=== PATIENT | female | born 1970 | race Caucasian/White ===

== ENCOUNTER 2018-01-18 02:55 | Emergency (ER) | payer MEDICAID ==
--- NOTE | 2018-01-18 03:40 | ED Physician Chart ---
ED Chief Complaint/HPI - Patient Information Date Seen:: 01/18/18 Time Seen:: 03:35 Chief Complaint:: allergic rxn scalp skin History of Present Illness:: 47 yr old female who was using hair dye kit on back of hair on and developed rash on post scalp and back of hair with oozing and severe rash maculopapular pt very irritated and nervous Allergies:: Allergies Allergy/AdvReac Type Severity Reaction Status Date / Time No Known Allergies Allergy Verified 01/18/18 03:06 Vitals:: Vital Signs - 8 hr 01/18/18 03:00 Temp 98.1 F HR 110 RR 20 BP 146/95 O2 Sat % 100 ED Review of Systems - Review of Systems General/Constitutional: No fever Skin: Skin lesions Head: No headache Eyes: No loss of vision Neck: Neck pain (neck pain mainly from the post neck irritation) Cardio Vascular: No chest pain Pulmonary: No SOB GI: No vomiting G/U: No dysuria Musculoskeletal: No bone or joint pain Endocrine: No polyuria Psychiatric: No depression Hematopoietic: No bruising Allergic/Immuno: Urticaria Neurological: No syncope Family Medical History - Family Member Mother History Unknown: Yes Ethnicity: Non- Living Status: ED Septic Shock - . Is Septic Shock (SBP<90, OR Lactate>4 mmol\L) present?: No - <6hrs of presentation: Vital Signs: Vital Signs - 8 hr 01/18/18 03:00 Temp 98.1 F HR 110 RR 20 BP 146/95 O2 Sat % 100 ED Reassessment (Disposition) - Reassessment Reassessment Condition:: Improved - Diagnosis Diagnosis:: allergic dermatitis skin scalp after hair dye - Aftercare/Follow up Instructions Aftercare/Follow-Up Instructions:: Counseled pt regarding lab results/diagnosis & need follow up - Patient Disposition Discharge/Transfer:: Home Condition at Disposition:: Stable
== END 2018-01-18 04:05 | disposition home or self-care (01) ==
LOC: ER 02:55
DX: L23.4 Allergic contact dermatitis due to dyes (principal); M54.2 Cervicalgia
CPT/HCPCS: J2930; Z7502

== ENCOUNTER 2018-06-28 22:53 | Emergency (ER) | payer SELFPAY ==
--- NOTE | 2018-06-28 23:11 | ED Physician Chart ---
ED Chief Complaint/HPI - Patient Information Date Seen:: 06/28/18 Time Seen:: 23:03 Chief Complaint:: facial swelling History of Present Illness:: 47 yr old female with mid face swelling reddness today no nv no fever or headache Allergies:: Allergies Allergy/AdvReac Type Severity Reaction Status Date / Time No Known Allergies Allergy Verified 06/28/18 22:58 Vitals:: Vital Signs - 8 hr 06/28/18 22:55 Temp 98.6 F HR 92 RR 18 BP 146/87 O2 Sat % 97 ED Review of Systems - Review of Systems General/Constitutional: No fever, No chills Skin: Rash, Other (swelling reddness midface) Eyes: No loss of vision ENT: No earache Neck: No neck pain Cardio Vascular: No chest pain Pulmonary: No SOB GI: No vomiting G/U: No dysuria Musculoskeletal: No bone or joint pain Endocrine: No polyuria Allergic/Immuno: Urticaria Family Medical History - Family Member Mother History Unknown: Yes Ethnicity: Non- Living Status: Maternal Grandfather Ethnicity: Non- Living Status: Hx Family Cancer: Yes ED Septic Shock - . Is Septic Shock (SBP<90, OR Lactate>4 mmol\L) present?: No - <6hrs of presentation: Vital Signs: Vital Signs - 8 hr 06/28/18 22:55 Temp 98.6 F HR 92 RR 18 BP 146/87 O2 Sat % 97 ED Reassessment (Disposition) - Reassessment Reassessment:: allergic rxn Reassessment Condition:: Improved - Diagnosis Diagnosis:: allergic rxn - Aftercare/Follow up Instructions Aftercare/Follow-Up Instructions:: Counseled pt regarding lab results/diagnosis & need follow up Medication Prescribed:: zpack medrol dose pack - Patient Disposition Discharge/Transfer:: Home Condition at Disposition:: Stable
== END 2018-06-28 23:30 | disposition home or self-care (01) ==
LOC: ER 22:53
DX: T78.40XA Allergy, unspecified, initial encounter (principal); X58.XXXA Exposure to other specified factors, initial encounter
CPT/HCPCS: 99283; 96372 ×2; J0696; J2930; Z7502